=== PATIENT | male | born 1995 | race Caucasian/White ===

== ENCOUNTER 2016-12-12 11:46 | Emergency (ER) | payer OTHER ==
--- NOTE | 2016-12-12 12:01 | CPEKG ---
Heart Rate: 99 RR Interval: 606 P-R Interval: 180 QRSD Interval: 102 QT Interval: 344 QTC Interval: 442 P [place]: 51 QRS [place]: 71 T Wave [place]: 25 EKG Severity - NORMAL ECG - EKG Impression: SINUS RHYTHM Electronically Signed By: Laura Herrera 12-Dec-2016 19:37:37
--- NOTE | 2016-12-12 12:02 | EDPHY ---
H & P Stated Complaint: L SIDED CP SINCE /LAST COCAINE USE IN DAILY Time Seen by Provider: 12/12/16 11:56 HPI/ROS: CHIEF COMPLAINT: Left-sided chest pain x3 days HISTORY OF PRESENT ILLNESS: 21-year-old male generally healthy complaining of 3 days of left-sided sharp stabbing chest pain described as intermittent , sharp steady, not consistently pleuritic. No radiation. No dyspnea. No syncope no near syncope. No diaphoresis. Not exertional. No abdominal pain. No nausea or vomiting PRIMARY CARE PROVIDER: REVIEW OF SYSTEMS: A ten point review of systems was performed and is negative with the exception of the items mentioned in the HPI PAST MEDICAL & SURGICAL HISTORY: No pertinent medical or surgical history SOCIAL HISTORY: regular marijuana use. Last cocaine use 09/24/2016 FAMILY HISTORY: No family history of premature coronary artery disease or sudden unexplained . PHYSICAL EXAM (Prior to examination, patient consented to physical exam, hands were washed and my usual and customary physical exam procedures followed) 1) GENERAL: Well-developed, well-nourished, alert and oriented. Appears to be in no acute distress. 2) HEAD: Normocephalic, atraumatic 3) HEENT: Pupils equal, round, reactive to light bilaterally. Sclera anicteric. 4) NECK: Full range of motion, no meningeal signs. No bruit 5) LUNGS: Clear auscultation bilaterally, no wheezes, no rhonchi, no retractions. No rash. Chest wall is tender to palpation left costosternal border. No lesions no vesicles 6) HEART: Regular rate and rhythm, no murmur, no heave, no gallop. 7) ABDOMEN: No guarding, no rebound, no focal tenderness, negative McBurney's,, 8) MUSCULOSKELETAL: Moving all extremities, no focal areas of tenderness, no obvious trauma. No peripheral edema or discoloration. 9) BACK: No CVA tenderness, no midline vertebral tenderness, no fluctuance, no step-off, no obvious trauma, no visual or palpable abnormality. 10) SKIN: No rash, no petechiae. [11) Psychiatric: Patient is oriented X 3, there is no agitation. DIFFERENTIAL DIAGNOSIS: [ In no particular order, including but not limited to myocardial ischemia, pulmonary embolus, chest wall pain, pleural inflammation and pulmonary infectious causes. - Personal History Current Tetanus/Diphtheria Vaccine: Yes - Medical/Surgical History Hx Asthma: No Hx Chronic Respiratory Disease: No Hx Diabetes: No Hx Cardiac Disease: No Hx Renal Disease: No Hx Cirrhosis: No Hx Alcoholism: No Hx HIV/AIDS: No Hx Splenectomy or Spleen Trauma: No Other PMH: R HAND SURGERY - Social History Smoking Status: Never smoked Constitutional: Initial Vital Signs Temperature (C) 36.5 C 12/12/16 11:49 Heart Rate 80 12/12/16 11:49 Respiratory Rate 16 12/12/16 11:49 Blood Pressure 140/81 H 12/12/16 11:49 O2 Sat (%) 95 12/12/16 11:49 O2 Delivery Mode Room Air Allergies/Adverse Reactions: codeine Allergy (Verified 12/12/16 11:49) Home Medications: Medication Instructions Recorded Ibuprofen [Motrin (*)] 800 mg PO Q6 #15 tab 12/12/16 Prozac 10 MG (*) 12/12/16 Medical Decision Making - Diagnostics Imaging: Imaging Impressions Chest X-Ray 12/12/16 11:56 Impression: Minimal left basilar atelectasis. Otherwise normal. ED Course/Re-evaluation: Patient has been re-evaluated with serial exams. Discussed case with Dr Pittman. I think that the patient's left-sided chest pain is more than likely secondary to acute musculoskeletal pain as he has reproducible pain with palpation to the left costosternal border and less than likely secondary to CO, pulmonary embolus, as he has a negative perc score, no recent cocaine use, no family history of sudden unexplained or premature coronary artery disease. Plan will be ibuprofen and discharge and usual and customary discharge precautions and instructions. He feels comfortable with this plan. Departure - Departure Disposition: Home, Routine, Self-Care Clinical Impression: Chest wall pain Condition: Good Instructions: Chest Pain (ED) Additional Instructions: Seek medical attention if you develop new or worsening chest pain, if you develop new or worsening shortness of breath, or any other symptoms that concern you. Prescriptions: Ibuprofen [Motrin (*)] 800 mg PO Q6 #15 tab
[2016-12-12 12:43] VITALS: BP 132/77; PULSE 81; RESP 20; TEMP 97.9; O2SAT 94
== END 2016-12-12 12:43 | disposition home or self-care (01) ==
DX: R07.89 Other chest pain (principal)

== ENCOUNTER 2016-12-14 11:55 | Emergency (ER) | payer OTHER ==
--- NOTE | 2016-12-14 12:34 | EDPHY ---
H & P Time Seen by Provider: 12/14/16 12:10 HPI/ROS: CHIEF COMPLAINT: Chest pain, shortness of breath HISTORY OF PRESENT ILLNESS: 21-year-old male presents to the emergency department by private vehicle complaining of ongoing chest pain since , last 5 days. Patient denies any known trauma or injury. He had a sudden onset of symptoms that has not resolved. He has been seen a [place] and was advised to come to the emergency department for evaluation. Still continues to complain of pain in his chest. He feels short of breath especially when he tries to exert himself. He also has worsening pain in his chest with taking a big deep breath. He denies calf pain or swelling. No recent travel. No headache. No neck or back pain. REVIEW OF SYSTEMS: Constitutional: No fever, no chills. Eyes: No double or blurry vision. ENT: No sore throat. Respiratory: Shortness of breath as above. No cough or other URI symptoms. Cardiac: Chest pain. Gastrointestinal: No abdominal pain, vomiting or diarrhea. Genitourinary: No dysuria. Musculoskeletal: No neck or back pain. Skin: No rashes. Neurological: No headache. Past Medical/Surgical History: Orthopedic surgery Social History: Originally from [place], [facility] student Smoking Status: Never smoked Physical Exam: General Appearance: Alert, no distress. Eyes: Pupils equal and round. Extraocular motions are all intact. ENT: Mouth: Mucous membranes moist. Respiratory: No wheezing, rhonchi, or rales, lungs are clear to auscultation. Unable to reproduce pain with palpation to the left anterior aspect of his chest. No palpable crepitus or other bony abnormality. Full range of motion of his left upper extremity. Cardiovascular: Regular rate and rhythm. Gastrointestinal: Abdomen is soft and nontender, no masses, no rebound or guarding, bowel sounds normal. Neurological: Alert and oriented x 3, cranial nerves II through XII grossly intact Skin: Warm and dry, no rashes. Musculoskeletal: Nontender to palpate along the cervical, thoracic or lumbar spine. Neck is supple. Extremities: Full range of motion and no peripheral edema. Psychiatric: Patient is oriented X 3, there is no agitation. Constitutional: Initial Vital Signs Temperature (C) 36.5 C 12/14/16 11:58 Heart Rate 83 12/14/16 11:58 Respiratory Rate 18 12/14/16 11:58 Blood Pressure 128/86 H 12/14/16 11:58 O2 Sat (%) 96 12/14/16 11:58 O2 Delivery Mode Room Air Allergies/Adverse Reactions: codeine Allergy (Verified 12/14/16 11:58) Home Medications: Medication Instructions Recorded Ibuprofen [Motrin (*)] 800 mg PO Q6 #15 tab 12/12/16 Prozac 10 MG (*) 12/12/16 Medical Decision Making - Diagnostics Imaging: Imaging Impressions Chest/Thorax CTA 12/14/16 13:15 Impression: 1. No evidence of thrombopulmonary embolic disease. 2. Small left pleural effusion and left basilar compressive atelectasis. 3. Hepatic steatosis. Findings discussed with Emergency Department physician's administrative assistant, Janet Hope at 1458 hours December 14, 2016. ED Course/Re-evaluation: 21-year-old male presents to the emergency department with left-sided chest pain shortness of breath. He had an elevated D-dimer of 1. Troponin was negative. The patient admits to using cocaine although has not used this in over a month. EKG was unremarkable. Pros and cons of CT pulmonary angiogram were discussed with the patient including radiation exposure and the patient agrees with CT scan. CT imaging reveals no evidence of pulmonary embolism. Very small left-sided effusion noted. The patient was feeling much better. Upon discharge she did not have any pain in his chest. Was comfortable being discharged home. His O2 saturation remained in the upper 90s. Given the history of dyspnea on exertion, I recommended follow-up with divisional merchandising manager. He was given referral. He was instructed to return if he developed recurring chest pain, shortness of breath, or if he felt worse in any way. Differential Diagnosis: Chest pain including but not limited to myocardial ischemia, pulmonary embolus, chest wall pain, pleural inflammation and pulmonary infectious causes. - Data Points Laboratory Results: Laboratory Results 12/14/16 12:40 12/14/16 12:40 12/14/16 12/14/16 12/14/16 12:40 12:40 12:40 WBC 9.27 10^3/uL 10^3/uL (3.80-9.50) RBC 4.84 10^6/uL 10^6/uL (4.40-6.38) Hgb 15.3 g/dL g/dL (13.7-17.5) Hct 43.6 % % (40.0-51.0) MCV 90.1 fL fL (81.5-99.8) MCH 31.6 pg pg (27.9-34.1) MCHC 35.1 g/dL g/dL (32.4-36.7) RDW 12.0 % % (11.5-15.2) Plt Count 226 10^3/uL 10^3/uL (150-400) MPV 10.9 fL fL (8.7-11.7) Neut % (Auto) 71.7 % % (39.3-74.2) Lymph % (Auto) 19.5 % % (15.0-45.0) [place] % (Auto) 7.1 % % (4.5-13.0) Eos % (Auto) 1.1 % % (0.6-7.6) Baso % (Auto) 0.5 % % (0.3-1.7) Nucleat RBC Rel Count 0.0 % % (0.0-0.2) Absolute Neuts (auto) 6.64 10^3/uL H 10^3/uL (1.70-6.50) Absolute Lymphs (auto) 1.81 10^3/uL 10^3/uL (1.00-3.00) Absolute Monos (auto) 0.66 10^3/uL 10^3/uL (0.30-0.80) Absolute Eos (auto) 0.10 10^3/uL 10^3/uL (0.03-0.40) Absolute Basos (auto) 0.05 10^3/uL 10^3/uL (0.02-0.10) Absolute Nucleated RBC 0.00 10^3/uL 10^3/uL (0-0.01) Immature Gran % 0.1 % % (0.0-1.1) Immature Gran # 0.01 10^3/uL 10^3/uL (0.00-0.10) D-Dimer 1.06 ug/mLFEU H ug/mLFEU (0.00-0.50) Sodium 144 mEq/L mEq/L (134-144) Potassium 4.3 mEq/L mEq/L (3.5-5.2) Chloride 104 mEq/L mEq/L (97-110) Carbon Dioxide 26 mEq/l mEq/l (22-31) Anion Gap 14 mEq/L mEq/L (8-16) BUN 14 mg/dL mg/dL (7-23) Creatinine 1.0 mg/dL mg/dL (0.7-1.3) Estimated GFR > 60 Glucose 114 mg/dL H mg/dL (70-100) Calcium 9.6 mg/dL mg/dL (8.5-10.4) Troponin I < 0.012 ng/mL ng/mL (0-0.034) Departure - Departure Disposition: Home, Routine, Self-Care Clinical Impression: Dyspnea on exertion Chest pain Qualifiers: Chest pain type: unspecified Qualified Code(s): R07.9 - Chest pain, unspecified Condition: Good Instructions: Chest Pain (ED), Dyspnea (ED) Additional Instructions: Follow-up with divisional merchandising manager as discussed regarding your shortness of breath. Return if you have recurring shortness of breath, recurring chest pain, or if you feel worse in any way. Do not do any drugs. Referrals: Ismael Gates MD [Primary Care Provider] - As per Instructions Don Kee MD [Medical Doctor] - As per Instructions
[2016-12-14 12:53] LABS: % IMMATURE GRANULYOCYTES 0.1 % (0.0-1.1); ABSOLUTE IMMATURE GRANULOCYTES 0.01 10^3/uL (0.00-0.10); ADD DIFF? NO; ADD MORPH? NO; ADD SCAN? NO; ATYPICAL LYMPHOCYTE FLAG 0 (0-99); FRAGMENT RBC FLAG 0 (0-99); HEMATOCRIT 43.6 % (40.0-51.0); HEMOGLOBIN 15.3 g/dL (13.7-17.5); LEFT SHIFT FLG 0 (0-99); LIPEMIA HEMOLYSIS FLAG 90 (0-99); MEAN CELL HEMOGLOBIN 31.6 pg (27.9-34.1); MEAN CELL HEMOGLOBIN CONCENTR. 35.1 g/dL (32.4-36.7); MEAN CELL VOLUME 90.1 fL (81.5-99.8); MEAN PLATELET VOLUME 10.9 fL (8.7-11.7); PLATELET CLUMPS FLAG 0 (0-99); PLATELET COUNT 226 10^3/uL (150-400); RED BLOOD CELL COUNT 4.84 10^6/uL (4.40-6.38)
[2016-12-14 13:11] LABS: ANION GAP 14 mEq/L (8-16); CALCIUM 9.6 mg/dL (8.5-10.4); CARBON DIOXIDE 26 mEq/l (22-31); CHLORIDE 104 mEq/L (97-110); GLOMERULAR FILTRATION RATE > 60; GLUCOSE 114 mg/dL (70-100); POTASSIUM 4.3 mEq/L (3.5-5.2); SODIUM 144 mEq/L (134-144)
[2016-12-14 13:22] LABS: TROPONIN I < 0.012 ng/mL (0-0.034)
[2016-12-14] MEDS ORDERED: IOPAMIDOL (ISOVUE 370) 100 ML BTL IV ONE (13:28)
--- NOTE | 2016-12-14 13:28 | CPEKG ---
Heart Rate: 70 RR Interval: 857 P-R Interval: 188 QRSD Interval: 100 QT Interval: 352 QTC Interval: 380 P [place]: 45 QRS [place]: 66 T Wave [place]: 31 EKG Severity - NORMAL ECG - EKG Impression: SINUS RHYTHM Electronically Signed By: Laura Herrera 14-Dec-2016 13:39:39
[2016-12-14 15:29] VITALS: RESP 16
[2016-12-14 15:30] VITALS: BP 134/87; PULSE 81; TEMP 98.2; O2SAT 96
== END 2016-12-14 15:29 | disposition home or self-care (01) ==
DX: R07.9 Chest pain, unspecified (principal); R06.09 Other forms of dyspnea
CPT/HCPCS: Q9967

== ENCOUNTER 2018-06-19 00:57 | Emergency (ER) | payer OTHER ==
[2018-06-19] MEDS ORDERED: LORazepam 2 MG/ML INJ IVP ONE (01:11)
[2018-06-19] MEDS ORDERED: NS 1,000 ML IV ONE (01:11)
[2018-06-19 01:33] LABS: PLATELET COUNT 253 10^3/uL (150-400)
--- NOTE | 2018-06-19 01:34 | EDPHY ---
H & P Stated Complaint: seeing hallucinations and body aches -taking adderall and coke Source: Patient - Personal History Current Tetanus/Diphtheria Vaccine: Yes Current Tetanus Diphtheria and Acellular Pertussis (TDAP): Yes - Medical/Surgical History Hx Asthma: No Hx Chronic Respiratory Disease: No Hx Diabetes: No Hx Cardiac Disease: No Hx Renal Disease: No Hx Cirrhosis: No Hx Alcoholism: No Hx HIV/AIDS: No Hx Splenectomy or Spleen Trauma: No Other PMH: R HAND SURGERY - Social History Smoking Status: Never smoked Time Seen by Provider: 06/19/18 01:34 HPI/ROS: HPI CHIEF COMPLAINT: Increasing depression, increasing anxiety, suicidal ideation, polysubstance abuse HISTORY OF PRESENT ILLNESS: 23-year-old male, presents emergency room with worsening depression, increasing anxiety and suicidal ideation. 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 He has been medicating with alcohol as well as cocaine and Adderall. Presents emergency room stating he did cocaine Adderall this evening. Also having suicidal ideation. Worsening depression. Seeking mental health help. Past Medical History: Depression and anxiety Past Surgical History: No recent surgical history Social History: Polysubstance abuse Family History: Noncontributory. ROS REVIEW OF SYSTEMS: 10 Systems were reviewed and negative with the exception of the elements mentioned in the history of present illness. Exam Constitutional nontoxic, triage nursing summary reviewed, vital signs reviewed , awake/alert. Noted be tachycardic upon arrival. Eyes normal conjunctivae and sclera, EOMI, PERRLA. HENT normal inspection, atraumatic, moist mucus membranes, no epistaxis, neck supple/ no meningismus, no raccoon eyes. Respiratory clear to auscultation bilaterally, normal breath sounds, no respiratory distress, no wheezing. Cardiovascular tachycardia, regular rhythm, no murmur, no edema, distal pulses normal. Gastrointestinal soft, non-tender, no rebound, no guarding, normal bowel sounds, no distension, no pulsatile mass. Genitourinary no CVA tenderness. Musculoskeletal no midline vertebral tenderness, full range of motion, no calf swelling, no tenderness of extremities, no meningismus, good pulses, neurovascularly intact. Skin pink, warm, & dry, no rash, skin atraumatic. Neurologic awake, alert and oriented x 3, AAOx3, moves all 4 extremities equally, motor intact, sensory intact, CN II-XII intact, normal cerebellar, normal vision, normal speech. Psychiatric increasing depression, anxiety, suicide ideation. Heme/Lymph/Immune no lymphadenopathy. Differential Diagnosis: Includes but is not limited to in a particular order polysubstance abuse, increasing depression, underlying mood disorder, bipolar disorder, suicidal ideation. Medical Decision Making: Plan for this patient blood draw for medical clearance. Patient be placed on M1 hold due to suicidal ideation worsening depression and needs mental health help. Re-evaluation: EKG interpretation by me on record in [facility] system. Impression time of EKG 1:11 a.m., sinus tach rate of 108 T-wave abnormality lead 3 and AVF otherwise no acute ischemia. ED x-ray chest one view: Negative for acute cardiopulmonary disease. No evidence of pneumothorax. 0144AM: Placed on m1 hold. 0700AM: Signed over to Dr. Pittman. (Jared Zhu) Constitutional: Initial Vital Signs Temperature (C) 37.1 C 06/19/18 01:01 Heart Rate 128 H 06/19/18 01:01 Respiratory Rate 16 06/19/18 01:01 Blood Pressure 147/102 H 06/19/18 01:01 O2 Sat (%) 95 06/19/18 01:01 O2 Delivery Mode Room Air Allergies/Adverse Reactions: codeine Allergy (Verified 06/19/18 01:05) Home Medications: Medication Instructions Recorded NK [No Known Home Meds] 06/19/18 Medical Decision Making ED Course/Re-evaluation: This patient was turned over to me at change of shift. This patient admits to using significant amounts of cocaine and alcohol. He most likely has a dual diagnosis of polysubstance abuse and severe major depression. He has been psychiatrically evaluated. We are recommending admission for his dual diagnosis. We are checking with Dr. Can Tatum the psychiatrist. (Vahid Pittman) Other Provider: 14:30: Patient accepted for transfer to [facility] by Dr. Montero. ( Emmett Minaya) - Data Points Laboratory Results: Laboratory Results 06/19/18 01:19 06/19/18 01:19 06/19/18 03:09 Urine Opiates Screen NEGATIVE (NEGATIVE) Urine Barbiturates NEGATIVE (NEGATIVE) Ur Phencyclidine Scrn NEGATIVE (NEGATIVE) Ur Amphetamine Screen NON-NEGATIVE H (NEGATIVE) U Benzodiazepines Scrn NEGATIVE (NEGATIVE) Urine Cocaine Screen NON-NEGATIVE H (NEGATIVE) U Marijuana (THC) Screen NON-NEGATIVE H (NEGATIVE) Medications Given: Discontinued Medications Sodium Chloride (Ns) 1,000 mls @ 0 mls/hr IV EDNOW ONE; Wide Open PRN Reason: Protocol Stop: 06/19/18 01:12 Last Admin: 06/19/18 01:18 Dose: 1,000 mls Lorazepam (Ativan Injection) 1 mg IVP EDNOW ONE Stop: 06/19/18 01:12 Last Admin: 06/19/18 01:18 Dose: 1 mg Lorazepam (Ativan) 1 mg PO EDNOW ONE Stop: 06/19/18 12:20 Last Admin: 06/19/18 12:27 Dose: 1 mg Point of Care Test Results: Chemistry 06/19/18 01:20 POC Troponin I 0.01 ng/mL ng/mL (0.00-0.08) Departure - Departure Disposition: Other Psych, Not [place] Clinical Impression: Polysubstance abuse, Depression, Suicidal ideation Condition: Good Referrals: NONE *PRIMARY CARE P,. [Primary Care Provider] - As per Instructions
[2018-06-19 01:53] LABS: INR 0.98 (0.83-1.16); PROTIME(PATIENT) 13.2 SEC (12.0-15.0)
[2018-06-19] MEDS ORDERED: LORazepam 1 MG TAB PO ONE (12:19)
--- NOTE | 2018-06-19 13:46 | ASMTTLCEVL ---
TLC Evaluation - Basic Information Evaluation Start Date and 06/19/2018 12:00 PM Time Hospital Status Answers: M1 Hold 72-hr M1 Hold Start Date 06/19/2018 01:39 AM and Time Patient statement Notes: " I've been struggling with pushing suicidal thoughts out of my head. Last night, I started having hallucinations and I knew I needed to come in." Narrative Notes: Pt is a 23 year old male who self presented to [facility] complaining of increased depression and suicidal ideation. Pt reported that he had developed a plan and implemented that plan two days ago where he attempted to asphyxiate himself by carbon monoxide poisoning in his garage. Pt stated he aborted his attempt because it is his mother's house and he did not want to do that to her. Pt stated the hallucinations he had when he saw "two people" were his sweeper operator highways Theo who committed suicide in May and his friend who of an overdose a few months ago. Pt reports he still is having suicidal thoughts. Pt reports he cannot identify particular stressors that are causing his depression and says " I just wake up this way." Pt does say that he has been using a lot of drugs and alcohol and he realizes this is a problem for him. Pt stated he would like help and stated, " I will do whatever you guys think I need to do ." Diagnosis History Notes: Pt reports he was diagnosed with depression. Prior suicide attempts Notes: Pt reports one prior suicide attempt at age 17 where he overdosed on pills . Prior hospitalizations Notes: Pt reports one hospitalization at age 17 while he was in living in [place]. Treatment Responses Notes: Unknown History of violence Notes: Pt denied wanting to harm others. Therapist: Garett Deng Psychiatrist: None Medications (name, dosage, route, freq uency) Notes: None. Pt stated he was on Prozac 40mg but stopped taking it 1 year ago because of the side effects. Pt reported he had weight gain and if effected his self image. Allergies/Reaction Notes: Codeine-Rash Sleep Notes: Pt reports he has poor sleep and stated, " I have to smoke weed or alcohol to go to sleep." Appetite Notes: Pt reports having increased appetite and stated, " I have gained about 50 lbs in the past 4 months. I think I have a binge eating problem." Medical/Surgical history Notes: None reported. Substance use history (frequency, intensity, his tory, duration) Notes: Pt reports a long history of polysubstance use. Pt reports he has been drinking alcohol since age 14 and stated recently he has been drinking 6 or 7 shots of alcohol every other day since April. Pt stated he also uses LSD. Pt stated he used LSD regularly his sophomore year of college and now he uses it once a month. Pt reports for the past 3 weeks he has been using cocaine and adderall to help him stay awake and help with his mid terms. Pt also reports he smokes marijuana daily. Pt stated, " I realize I'm having a lot of substance abuse problems." Pt stated his therapist recently asked him when was the last time he remembers being sober and pt stated, " About 14 years old." Pt's utox was positive for amphetamine, cocaine and thc. Bal was.0. Family composition Notes: Pt has 3 siblings. His parents live in [place]. Pt's mother is flying to [place] and will be here on Tuesday. Need for family Answers: No participation in patient's care Family psychiatric/substance abuse history Notes: Pt stated he does not know if there is a hx of substance use in his family but stated his a maternal Aunt has been dx with bipolar and he has a cousin who also has bipolar disorder. Developmental history Notes: Pt stated he moved a lot as a child. He lived n [place] until he was 6 years old then he moved to [place], [place] where he lived for a couple years. Pt then moved to [facility] and lived there from ages 14- 17, then back to the [place] to attend boarding school in [place]. Pt's parents went to live in [place]. Pt states his mother is a card writer hand and his father is an oil computer engineering technician. Pt stated two of his siblings went to separate boarding schools but he and his one sister were able to stay together. Pt stated although he was from his mother, she was "very tech savvy," and we stayed in touch all the time but snap chat and all that." Abuse concerns Answers: None Marital status/children Notes: Pt is unmarried, no children. Living situation Notes: Pt lives with his brother in [place]. They live in a house their mother owns. Sexual history/orientation Notes: Heterosexual Peer support/family strengths Notes: Pt reports, " I have amazing friends." Education level/history Notes: Pt stated he is a senior at [employer]. Pt reported he was on AP last year and has gotten off and is working on getting his grades back up. Pt is studying history. Pt reports he wants to get in law school but will have to stay another year to complete his degree. Work history Notes: Pt is not currently working. Notes: None reported Legal Notes: None currently. Pt received an MIP his freshman year but completed all his court requirements and stated, " my record is sealed." Shinto/Spiritual Notes: None reported Leisure Notes: Pt reported he enjoys playing video games and doing standup comedy. Pt reports he goes to [employer] and stated, " doing comedy is my only natural high." Collateral Notes: None Patient's strengths Answers: Artistic/Creative/Musical (Please select at least TWO strengths): Funny/Using Humor Honest Insightful Intelligent Motivated for Treatment Willingness [facility] Evaluation - Mental Status Exam Appearance: Answers: Appropriate Eye Contact: Answers: Good/Direct Mood: Answers: Sad Affect: Answers: Flat Sad Behavior: Answers: Cooperative Fatigued Speech: Answers: Relevant Logical Clear Coherent Thought Process: Answers: Organized Oriented Alert Intact Insight: Answers: Good Judgement: Answers: Poor Depression Answers: Flat Affect Signs/Symptoms: Hopelessness Sad Mood Hallucinations: Answers: Visual Pt reported to have Answers: Yes suicidal/self-injuring ideation/behavior? Pt reported to be making Answers: Yes suicidal/self-injuring threats? Pt reported to have Answers: No aggression/assault ideation/behavior? Pt reported to be making Answers: No aggression/assault threats? Ideation/behavior is Answers: Yes chronic? Patient has a specific Answers: Yes plan? Pt has access to means to Answers: Yes execute the plan? Ideation involves Answers: Yes serious/lethal intent? Ideation has Answers: No delusional/hallucinatory content? History of Answers: Yes suicidal/self-injuring ideation, behavior, or threats? History of Answers: No aggressive/assaultive ideation, behavior, or threats? History of serious Answers: No physical harm to self/others while in treatment setting? TLC Evaluation - Suicide/Homicide Risk Suicide Risk Factors: Answers: < 20 or > 40 Years of Age Alcohol/Heavy Drug Use Hopelessness Intoxication Major Depression Organized Lethal Plan Prior Suicide Attempt(s) School Difficulties Single Homicide/violence risk Answers: None factors: Current Suicidal Answers: Yes Ideation? Current Suicide Ideation Pt has currentl SI w/plan and attempted plan 2 days Frequency: ago. Current Suicidal Ideation Answers: Yes in the Past 48 Hours? Current Suicidal Ideation Answers: Yes in the Past Month? Suicide Internal Answers: Absence of Psychosis Protective Factors: Suicide External Answers: Positive Therapeutic Protective Factors: Relationships Social Support Ranking of patient's Answers: Severe suicidal risk: Ranking of patient's Answers: Low homicidal risk: TLC Evaluation - Wrap-up AXIS I Diagnosis (include DSM-V and ICD-10 codes), must also be entered in [employer], which is the source of truth. Notes: In consultation with [facility] ED physician, Vahid Pittman MD and on-call psychiatrist, Dwight Das MD, both concurred that pt appears to meet 27-65 criteria requiring psychiatric hospitalization as pt appears to be at risk of harm to self due to a mental illness condition. Evaluation End Date and 06/19/2018 01:45 PM Time (HH:CHAVA): Date Signed: 06/19/2018 01:46 PM Electronically Signed By:Ashlie Brower
--- NOTE | 2018-06-19 14:55 | ASMTTCLDSP ---
TLC Discharge Disposition Disposition: Answers: Transfer Disposition Notes: Notes: Transferred for Dual Diagnosis treatment at [facility]. Discharge Concerns/Recommendations: Notes: In consultation with [facility] ED physician, Vahid Pittman MD, Dr. Pittman concurred that pt appears to meet 27-65 criteria requiring psychiatric hospitalization as pt appears to be at risk of harm to self due to a mental illness condition. Was patient given the Answers: Not applicable Inpatient Behavioral Health Prohibited Belongings List while in the ED? Type of Hold: Answers: M1/72-hour Hold Hold initiated by: Answers: ED Physician For Transfers, Accepting [facility] Facility: For Transfers, Accepting Dr. Carole Montero. Psychiatrist: For Transfers, Reason Dual Diagnosis treatment facility Patient is Being Transferred: Date Signed: 06/19/2018 02:54 PM Electronically Signed By:Ramirez Whitehead
[2018-06-19 15:07] VITALS: BP 153/97
--- NOTE | 2018-06-22 23:58 | CPEKG ---
Test Reason : OPEN Blood Pressure : / mmHG Vent. Rate : 108 BPM Atrial Rate : 110 BPM P-R Int : 161 ms QRS Dur : 112 ms QT Int : 320 ms P-R-T Axes : 042 059 -13 degrees QTc Int : 429 ms Sinus tachycardia Borderline T abnormalities, inferior leads Confirmed by Jared Zhu ([id number] on 06/22/2018 11:57:48 PM Referred By: Confirmed By:Jared Zhu
== END 2018-06-19 17:04 ==
DX: R45.851 Suicidal ideations (principal); F41.8 Other specified anxiety disorders; E86.9 Volume depletion, unspecified
CPT/HCPCS: 80305; 84484-PO; 96374; G0480; J2060